=== PATIENT | female | born 1965 | race Hispanic/Latino ===

== ENCOUNTER 2021-09-23 01:58 | Emergency (ER) | payer MEDICAID, SELFPAY ==
[2021-09-23] MEDS ORDERED: Pantoprazole 40 MG VIAL ONE (03:18)
[2021-09-23 03:19] LABS: #Eosinphils 0.2 10x3/uL (0.0-0.5); #Monocytes 0.6 10x3/uL (0.0-1.1); #Neutrophils 5.1 10x3/uL (1.5-8.4); %Basophils 0.4 % (0.0-2.0); %Eosinophils 1.9 % (0.0-6.0); %Lymphocytes 36.1 % (18.0-47.0); %Monocytes 6.3 % (0.0-10.0); %Neutrophils 54.9 % (40.0-75.0); Hemoglobin 10.6 g/dL (12.0-15.5); Mean Corpuscular HGB CONC 32.8 g/dL (32.0-36.0); Mean Corpuscular Hemoglobin 29.2 pg (27.0-33.0); Mean Platelet Volume 10.4 fl (7.4-10.4); Platelet Count 202 10x3/uL (150-450); RBC Distribution Width 12.9 % (11.5-14.5); Red Blood Cell (RBC) Count 3.63 10x6/uL (3.90-5.03); White Blood Cell (WBC) Count 9.3 10x3/uL (3.5-10.5)
[2021-09-23 03:40] LABS: Anion Gap 17 mmol/L (10-20); BUN (Urea Nitrogen) 16 mg/dL (9.8-20.1); Calc. Creatinine Clearance 0 mL/min (70-130); Carbon Dioxide 21 mmol/L (22-29); Chloride 103 mmol/L (98-107); Potassium 4.1 mmol/L (3.5-5.1); Sodium 137 mmol/L (136-145)
[2021-09-23 03:41] LABS: ALT (SGPT) 28 U/L (8-55); AST (SGOT) 18 U/L (5-34); Albumin 4.2 g/dL (3.5-5.0); Alkaline Phosphatase 94 U/L (40-110); Bilirubin, Total 0.3 mg/dL (0.2-1.2); Calcium 9.3 mg/dL (7.8-10.44); Globulin 3.3 g/dL (2.4-3.5); Glucose 230 mg/dL (70-105); Lipase 30 U/L (8-78); Protein, Total 7.5 g/dL (6.0-8.3)
[2021-09-23 04:17] LABS: Platelet Morphology Comment PLT clumps seen-ADEQ; RBC Morphology Normal
[2021-09-23] MEDS ORDERED: Milk Of Magnesia 30 ML UDCUP ONE (04:52)
[2021-09-23] MEDS ORDERED: Lidocaine Viscous Sol 2% 15 ml UD Cup ONE (04:52)
== END 2021-09-23 05:05 | disposition home or self-care (01) ==
LOC: CSHERS 01:58
DX: K29.70 Gastritis, unspecified, without bleeding (principal); E11.9 Type 2 diabetes mellitus without complications; E78.5 Hyperlipidemia, unspecified; I10 Essential (primary) hypertension; Z79.4 Long term (current) use of insulin; Z79.899 Other long term (current) drug therapy; Z79.84 Long term (current) use of oral hypoglycemic drugs
CPT/HCPCS: 71045; 74177; 80053; 83690; 84484; 85025; 93005; 96374; C9113

== ENCOUNTER 2022-10-13 15:03 | Emergency (ER) | payer OTHER ==
[2022-10-13 17:13] LABS: SARS-CoV-2 NAA Rapid Test DETECTED (NotDetected)
== END 2022-10-13 17:39 | disposition home or self-care (01) ==
LOC: CSHERS 15:03
DX: U07.1 COVID-19 (principal); E11.9 Type 2 diabetes mellitus without complications; E78.5 Hyperlipidemia, unspecified; I10 Essential (primary) hypertension; Z79.899 Other long term (current) drug therapy
CPT/HCPCS: 71045

== ENCOUNTER 2022-12-14 20:54 | Emergency (ER) | payer OTHER ==
[2022-12-14] MEDS ORDERED: Ketorolac Tromethamine 30 MG/ML VIAL ONE (22:01)
== END 2022-12-14 23:05 | disposition home or self-care (01) ==
LOC: CSHERS 20:54
DX: M79.601 Pain in right arm (principal); E11.9 Type 2 diabetes mellitus without complications; E78.5 Hyperlipidemia, unspecified; I10 Essential (primary) hypertension; Z79.4 Long term (current) use of insulin; Z79.84 Long term (current) use of oral hypoglycemic drugs; Z79.899 Other long term (current) drug therapy
CPT/HCPCS: 96372; J1885

== ENCOUNTER 2023-01-08 13:41 | Outpatient (CLI) | payer OTHER ==
[2023-01-08 14:53] LABS: Anion Gap 16 mmol/L (10-20); BUN (Urea Nitrogen) 17 mg/dL (9.8-20.1); Calc. Creatinine Clearance 0 mL/min (70-130); Calcium 9.8 mg/dL (7.8-10.44); Carbon Dioxide 24 mmol/L (22-29); Chloride 100 mmol/L (98-107); Estimated GFR 85; Glucose 270 mg/dL (70-105); Potassium 4.9 mmol/L (3.5-5.1); Sodium 135 mmol/L (136-145)
== END 2023-01-08 13:42 | disposition home or self-care (01) ==
LOC: CSHLAB 13:41
PROVIDERS: ATTEND Orthopaedic Surgery
DX: Z01.818 Encounter for other preprocedural examination (principal); S83.281A Other tear of lateral meniscus, current injury, right knee, initial encounter
CPT/HCPCS: 80048; 93005; 93010

== ENCOUNTER 2023-01-10 10:22 | Day surgery (SDC) | payer OTHER ==
[2023-01-08 10:14] VITALS: BMI 26.2
[2023-01-10] MEDS ORDERED: Bupivacaine HCl 0.5%/Epinephrine 1:200,000/PF 30 ml Vial ONE (12:56)
[2023-01-10] MEDS ORDERED: Rocuronium Bromide 10 MG/ML (10ML VIAL) ONE (13:11)
[2023-01-10] MEDS ORDERED: Fentanyl 100 MCG/2 ML VIAL ONE (13:11)
[2023-01-10] MEDS ORDERED: Lidocaine 1% PF 5 ML VIAL ONE (13:11)
[2023-01-10] MEDS ORDERED: Lidocaine 2% PF 5 ML VIAL ONE (13:11)
[2023-01-10] MEDS ORDERED: PROPOFOL 20 ML ONE (13:11)
[2023-01-10] MEDS ORDERED: CEFAZOLIN 2 GM VIAL ONE (13:12)
[2023-01-10] MEDS ORDERED: Metoprolol Tartrate 5 MG/5 ML VIAL ONE (13:52)
[2023-01-10] MEDS ORDERED: PHENYLEPHRINE-NS 100 MCG/ML 10 ML SYRINGE ONE (14:01)
[2023-01-10] MEDS ORDERED: Ondansetron PF 4 MG/2 ML Vial ONE (14:18)
[2023-01-10] MEDS ORDERED: Glycopyrrolate 0.2 MG/ML 5 ML SYRINGE ONE (14:20)
== END 2023-01-10 16:17 | disposition home or self-care (01) ==
LOC: CSHSDC 10:22
PROVIDERS: ATTEND Orthopaedic Surgery
PROC: 0SBC4ZZ Excision of Right Knee Joint, Percutaneous Endoscopic Approach (ICD-10-PCS; principal; 2023-01-10)
DX: S83.281A Other tear of lateral meniscus, current injury, right knee, initial encounter (principal); S83.241A Other tear of medial meniscus, current injury, right knee, initial encounter; I10 Essential (primary) hypertension; E11.9 Type 2 diabetes mellitus without complications; K21.9 Gastro-esophageal reflux disease without esophagitis; E78.5 Hyperlipidemia, unspecified; Z79.84 Long term (current) use of oral hypoglycemic drugs; Z79.899 Other long term (current) drug therapy; X50.1XXA Overexertion from prolonged static or awkward postures, initial encounter
CPT/HCPCS: C1713; J2001; J2405; J2704; J3010

== ENCOUNTER 2023-03-24 10:31 | Emergency (ER) | payer OTHER | END 2023-03-24 12:32 | disposition home or self-care (01) | LOC: CSHERS 10:31 | DX: J06.9 Acute upper respiratory infection, unspecified (principal); E11.9 Type 2 diabetes mellitus without complications; I10 Essential (primary) hypertension | CPT/HCPCS: 71045; 93005 ==

== ENCOUNTER 2023-05-12 14:26 | Emergency (ER) | payer OTHER | END 2023-05-12 16:15 | disposition home or self-care (01) | LOC: CSHERS 14:26 | DX: B02.9 Zoster without complications (principal); E78.00 Pure hypercholesterolemia, unspecified; I10 Essential (primary) hypertension; E11.9 Type 2 diabetes mellitus without complications | CPT/HCPCS: 71045; 93005 ==

== ENCOUNTER 2023-10-13 12:43 | Emergency (ER) | payer OTHER, SELFPAY ==
[2023-10-13 14:07] LABS: SARS-CoV-2 NAA Rapid Test Not Detected (NotDetected)
== END 2023-10-13 14:40 | disposition home or self-care (01) ==
LOC: CSHERS 12:43
DX: B34.9 Viral infection, unspecified (principal); R05.9 Cough, unspecified; R09.89 Other specified symptoms and signs involving the circulatory and respiratory systems; E11.9 Type 2 diabetes mellitus without complications; I10 Essential (primary) hypertension; Z20.822 Contact with and (suspected) exposure to COVID-19
CPT/HCPCS: 71046

== ENCOUNTER 2023-10-15 00:07 | Emergency (ER) | payer OTHER ==
[2023-10-15] MEDS ORDERED: Ibuprofen 800 MG TAB ONE (00:42)
[2023-10-15] MEDS ORDERED: guaiFENesin/Codeine Phosphate 100 mg/10 mg 5 ml UD Cup ONE (00:42)
== END 2023-10-15 01:30 | disposition home or self-care (01) ==
LOC: CSHERS 00:07
DX: J18.9 Pneumonia, unspecified organism (principal); E11.9 Type 2 diabetes mellitus without complications; I10 Essential (primary) hypertension
CPT/HCPCS: 71046

== ENCOUNTER 2024-10-12 15:18 | Outpatient (CLI) | payer OTHER | END 2024-10-12 15:19 | disposition home or self-care (01) | LOC: CSHMAMMO 15:18 | PROVIDERS: ATTEND Family Medicine | DX: Z12.31 Encounter for screening mammogram for malignant neoplasm of breast (principal) | CPT/HCPCS: 77063; 77067 ==

== ENCOUNTER 2025-07-20 14:23 | Outpatient (CLI) | payer OTHER | END 2025-07-20 14:24 | disposition home or self-care (01) | LOC: CSHMAMMO 14:23 | PROVIDERS: ATTEND Family Medicine | DX: N64.4 Mastodynia (principal) | CPT/HCPCS: 77066; G0279 ==